=== PATIENT | male | born 1975 | race Caucasian/White ===

== ENCOUNTER 2017-02-07 20:21 | Emergency (ER) | payer BC ==
[~2017-02-07] VITALS: Ht 170.2 cm; Wt 106.6 kg
[2017-02-07 20:35] VITALS: BP_SYST 132
--- NOTE | 2017-02-07 20:35 | NUR ---
Patient VSS, no acute distress noted. Placed in waiting room at this time, will continue to monitor.
[2017-02-07 21:17] LABS: BASOPHILS # (AUTO) 0.1 K/uL (0.0-0.2); BASOPHILS % (AUTO) 0.4 % (0.0-2.0); EOSINOPHILS # (AUTO) 0.3 K/uL (0.0-0.4); EOSINOPHILS % (AUTO) 2.1 % (0.0-4.0); HEMATOCRIT 41.8 % (36-54); HEMOGLOBIN 13.6 g/dL (14.0-18.0); LYMPHOCYTES # (AUTO) 1.9 K/uL (1.0-5.5); LYMPHOCYTES % (AUTO) 13.7 % (20.5-51.5); MEAN CORPUSCULAR HEMOGLOBIN 29 pg (27-31); MEAN CORPUSCULAR HGB CONC 33 % (32-36); MEAN CORPUSCULAR VOLUME 88 fL (79.0-98.0); MONOCYTES # (AUTO) 0.7 K/uL (0.0-1.0); MONOCYTES % (AUTO) 4.9 % (1.7-9.3); NEUTROPHILS # (AUTO) 10.6 K/uL (1.8-7.7); NEUTROPHILS % (AUTO) 78.9 % (40.0-70.0); PLATELET COUNT (AUTO) 274 K/uL (130-430); RED BLOOD CELL COUNT(AUTO) 4.74 MIL/uL (4.2-6.2); RED CELL DISTRIBUTION WIDTH 11.8 % (9.0-15.0); WHITE BLOOD COUNT (AUTO) 13.6 K/uL (4.8-10.8)
[2017-02-07 21:21] LABS: CALCIUM 8.4 mg/dL (8.4-11.0); CREATININE 1.29 mg/dL (0.55-1.30)
[2017-02-07 21:25] LABS: ALBUMIN 3.4 g/dL (3.4-4.8); TOTAL BILIRUBIN 0.7 mg/dL (0.0-1.0)
--- NOTE | 2017-02-07 22:51 | NUR ---
Patient to ER bed 8 to gown for evaluation. Side rails up. Report given to Raysa GREEN.
--- NOTE | 2017-02-07 23:00 | NUR ---
Patient to ER C/O severe 01/02 LLQ abdominal pain non-radiating. Patient states "pain started Friday and just got worse" Patient also C/O nausea, no vomiting, denies constipation or diarrhea. AAOx4, unlabored breathing, no signs of acute distress.
--- NOTE | 2017-02-08 00:05 | NUR ---
ER MD Arriola at bedside for evaluation
--- NOTE | 2017-02-08 00:10 | NUR ---
Patient reports pain 5/10 15 minutes after administration of morphine, zofran & NS. No adverse reactions noted. Will continue to monitor.
[2017-02-08] MEDS ORDERED: ONDANSETRON HCL 4 MG/2 ML VIAL IVP ONE (00:30)
[2017-02-08] MEDS ORDERED: metroNIDAZOLE 500 MG TABLET PO ONE (00:30)
[2017-02-08] MEDS ORDERED: NACL 0.9% 1,000 ML IV ONE (00:30)
[2017-02-08] MEDS ORDERED: MORPHINE 4 MG/ML INJ. SYRINGE IVP ONE (00:30)
[2017-02-08] MEDS ORDERED: CIPROFLOXACIN HCL 500 MG TABLET PO ONE (00:30)
[2017-02-08 00:44] LABS: BILIRUBIN,URINE NEGATIVE (NEGATIVE); BLOOD, URINE 3+ (NEGATIVE); CLARITY/URINE CLEAR (CLEAR); COLOR,URINE YELLOW (YELLOW); GLUCOSE,URINE NEGATIVE (NEGATIVE); KETONES,URINE NEGATIVE (NEGATIVE); LEUKOCYTE ESTERASE ,URINE NEGATIVE (NEGATIVE); NITRITE, URINE NEGATIVE (NEGATIVE); PROTEIN URINE 1+ (NEGATIVE); UROBILINOGEN,URINE 0.2 (0.2-1.0)
[2017-02-08 00:45] LABS: WBC,URINE 0-3 /HPF (0-3)
--- NOTE | 2017-02-08 00:45 | NUR ---
# 20 gauge angiocath placed to right hand. Use of asceptic technique. Opsite placed over site. Blood return noted. Flushed with 10 cc of normal saline. No evidence of infiltration noted. Patient tolerated well.
[2017-02-08 00:46] LABS: BACTERIA,URINE FEW /HPF (None Seen)
--- NOTE | 2017-02-08 01:22 | NUR ---
30 minutes after administration of cipro & flagyl. No adverse reactions noted. Will continue to monitor.
[2017-02-08 02:12] VITALS: BP_SYST 105
--- NOTE | 2017-02-08 02:12 | NUR ---
Patient given written and verbal discharge instructions and verbalizes understanding. ER MD Arriola discussed with patient the results and treatment provided. Patient in stable condition. ID arm band removed. Rx of tramadol, flagyl, cipro given. Patient educated on pain management and to follow up with PMD. Pain Scale 0/10. Opportunity for questions provided and answered.
== END 2017-02-08 02:12 | disposition home or self-care (01) ==
LOC: SED 20:21
DX: K57.92 Diverticulitis of intestine, part unspecified, without perforation or abscess without bleeding (principal); Z88.8 Allergy status to other drugs, medicaments and biological substances
CPT/HCPCS: 36415; 74176; 80053; 81000; 82150; 83690; 84484; 85025; 96361; 96374; 96375; 99285; J2270; J2405; J7030